=== PATIENT | male | born 1950 | race Hispanic/Latino ===

== ENCOUNTER 2021-07-06 00:42 | Inpatient (IN) | payer SELFPAY ==
[~2021-07-06] VITALS: Ht 167.6 cm; Wt 68.0 kg
[~2021-07-06 00:42] MED LIST: COMBIVENT INH14.7 GM INH; SPIRIVA18 MCG INH; SYMBICORT 16010.2 GM INH
[2021-07-06 01:01] LABS: BASOPHILS % 0.3 % (0.0-1.0); EOSINOPHILS # (AUTO) 0.1 (0.0-0.4); EOSINOPHILS % 1.7 % (0.0-6.0); HEMATOCRIT 35.8 % (38.2-49.6); HEMOGLOBIN 11.8 g/dL (14.0-18.0); LYMPHOCYTES # (AUTO) 1.4 (1.0-3.2); LYMPHOCYTES % 18.5 % (18.0-39.1); MEAN CORPUSCULAR HEMOGLOBIN 30.1 pg (28-32); MEAN CORPUSCULAR VOLUME 91.3 fL (81-99); MONOCYTES # (AUTO) 0.7 (0.2-0.8); MONOCYTES % 8.4 % (4.4-11.3); NEUTROPHILS # (AUTO) 5.3 (2.1-6.9); NEUTROPHILS % 68.1 % (38.7-80.0); PLATELET COUNT 250 x10e3/uL (140-360); RED BLOOD COUNT 3.92 x10e6/uL (4.3-5.7); RED CELL DISTRIBUTION WIDTH 13.4 % (11.7-14.4)
[2021-07-06 01:23] LABS: ALBUMIN 2.8 g/dL (3.5-5.0); ALBUMIN/GLOBULIN RATIO 0.8 (0.8-2.0); ANION GAP 14.5 mmol/L (8-16); CREATININE, SERUM 0.72 mg/dL (0.72-1.25); POTASSIUM 3.5 mmol/L (3.5-5.1)
[2021-07-06 01:32] LABS: CREATINE KINASE MB 1.4 ng/mL (0-5.0)
[2021-07-06] MEDS ORDERED: KETOROLAC TROMETHAMINE 30 MG/ML VIAL IV STA (01:46)
[2021-07-06] MEDS ORDERED: ULTRAM 50MG50 MG PO (01:50)
[2021-07-06 04:00] LABS: INR 0.99; PROTHROMBIN TIME 13.9 seconds (11.9-14.5)
[2021-07-06] MEDS ORDERED: HEPARIN SOD (PORCINE) 5,000 UNIT/ML VIAL IV ONE (04:00)
[2021-07-06 04:01] LABS: PARTIAL THROMBOPLASTIN TIME 31.2 seconds (23.8-35.5)
[2021-07-06] MEDS ORDERED: ONDANSETRON HCL INJ 2MG/ML 2ML 2 MG/ML VIAL IV PRN (04:30)
[2021-07-06] MEDS ORDERED: SODIUM CHLORIDE FLUSH 10 ML SYR INJ PRN (04:30)
[2021-07-06] MEDS ORDERED: HEPARIN 25,000 UNIT DRIP IV ONE (04:35)
[2021-07-06] MEDS: HEPARIN 25,000 UNIT 1,200 UNIT in DEXTROSE 5% 250ML 250 ML IV SCH (04:41)
[2021-07-06] MEDS ORDERED: IOPAMIDOL 370 MG/ML 200 ML INFUS..BTL INJ ONE (06:09)
[2021-07-06] MEDS ORDERED: SODIUM CHLORIDE 0.9% 50ML 50 ML ONE (06:09)
[2021-07-06 06:47] VITALS: BP 137/84
[2021-07-06 08:00] VITALS: BP 136/77
[2021-07-06 09:14] LABS: CREATINE KINASE MB 1.4 ng/mL (0-5.0)
[2021-07-06 11:55] VITALS: BP 135/79
[2021-07-06 16:00] VITALS: BP 141/73
[2021-07-06] MEDS: TRAMADOL HCL 50 MG TAB PO PRN ×2 (16:14→18:21)
[2021-07-06 17:01] LABS: CREATINE KINASE MB 1.5 ng/mL (0-5.0)
[2021-07-06] MEDS: BUDESONIDE/FORMOTEROL 160/4.5MCG INHALER INH SCH (19:23)
[2021-07-06 20:00] VITALS: BP 129/76
[2021-07-07] VITALS (8 sets, daily range): BP systolic 121–155; BP diastolic 71–93
[2021-07-07] MEDS: TRAMADOL HCL 50 MG TAB PO PRN ×3 (00:25→11:58)
[2021-07-07] MEDS ORDERED: HEPARIN 25,000 UNIT DRIP IV ONE (03:10)
[2021-07-07] MEDS: HEPARIN 25,000 UNIT 1,200 UNIT in DEXTROSE 5% 250ML 250 ML IV SCH (05:01)
[2021-07-07 06:08] LABS: BASOPHILS # (AUTO) 0.1 (0.0-0.1); EOSINOPHILS # (AUTO) 0.1 (0.0-0.4); EOSINOPHILS % 1.1 % (0.0-6.0); HEMATOCRIT 36.8 % (38.2-49.6); HEMOGLOBIN 12.3 g/dL (14.0-18.0); LYMPHOCYTES # (AUTO) 1.4 (1.0-3.2); LYMPHOCYTES % 16.9 % (18.0-39.1); MEAN CORPUSCULAR HEMOGLOBIN 30.6 pg (28-32); MEAN CORPUSCULAR HGB CONC 33.4 g/dL (31-35); MEAN CORPUSCULAR VOLUME 91.5 fL (81-99); MONOCYTES # (AUTO) 0.6 (0.2-0.8); MONOCYTES % 7.6 % (4.4-11.3); NEUTROPHILS # (AUTO) 5.5 (2.1-6.9); NEUTROPHILS % 65.2 % (38.7-80.0); PLATELET COUNT 276 x10e3/uL (140-360); RED BLOOD COUNT 4.02 x10e6/uL (4.3-5.7); RED CELL DISTRIBUTION WIDTH 13.5 % (11.7-14.4)
[2021-07-07] MEDS: TIOTROPIUM 18 MCG INH POWDER INH SCH (06:09)
[2021-07-07] MEDS: BUDESONIDE/FORMOTEROL 160/4.5MCG INHALER INH SCH ×2 (06:09→19:25)
[2021-07-07 07:03] LABS: ALBUMIN 2.7 g/dL (3.5-5.0); ALBUMIN/GLOBULIN RATIO 0.8 (0.8-2.0); ANION GAP 13.6 mmol/L (8-16); CALCIUM 8.3 mg/dL (8.4-10.2); CREATININE, SERUM 0.73 mg/dL (0.72-1.25); POTASSIUM 3.6 mmol/L (3.5-5.1)
[2021-07-07 07:42] LABS: CREATINE KINASE MB 0.9 ng/mL (0-5.0)
[2021-07-07 11:31] LABS: EOSINOPHILS % (MANUAL) 1 % (0-7); LYMPHOCYTES % (MANUAL) 17 % (19-48); MONOCYTES % (MANUAL) 3 % (3.4-9.0); NEUTROPHILS % (MANUAL) 78 % (40-74); PLATELET ESTIMATE ADEQUATE
[2021-07-07 11:32] LABS: PLATELET MORPHOLOGY COMMENT NORMAL; RBC MORPHOLOGY COMMENT NORMAL
[2021-07-07] MEDS: Morphine 4mg Syringe 4 MG/ML INJ IV PRN (15:25)
[2021-07-08] VITALS (8 sets, daily range): BP systolic 119–156; BP diastolic 70–86
[2021-07-08] MEDS: Morphine 4mg Syringe 4 MG/ML INJ IV PRN ×3 (01:40→17:54)
[2021-07-08] MEDS: HEPARIN 25,000 UNIT 1,200 UNIT in DEXTROSE 5% 250ML 250 ML IV SCH (04:00)
[2021-07-08] MEDS: BUDESONIDE/FORMOTEROL 160/4.5MCG INHALER INH SCH ×2 (07:03→18:40)
[2021-07-08] MEDS: TIOTROPIUM 18 MCG INH POWDER INH SCH (07:03)
[2021-07-08 07:10] LABS: CHOL/HDL RATIO 3.7 (3.9-4.7)
[2021-07-08 07:30] LABS: THYROID STIMULATING HORMONE 4.315 uIU/mL (0.350-4.940)
[2021-07-08 13:46] LABS: INR 1.02; PROTHROMBIN TIME 14.2 seconds (11.9-14.5)
[2021-07-08] MEDS: ALBUTEROL/IPRATROPIUM 3 ML NEB NEB PRN ×3 (16:12→22:15)
[2021-07-08] MEDS: WARFARIN SOD 5 MG TAB PO SCH (17:48)
[2021-07-08] MEDS: TRAMADOL HCL 50 MG TAB PO PRN (19:45)
[2021-07-09] VITALS (8 sets, daily range): BP systolic 112–156; BP diastolic 62–74
[2021-07-09] MEDS: HEPARIN 25,000 UNIT 1,200 UNIT in DEXTROSE 5% 250ML 250 ML IV SCH (00:45)
[2021-07-09] MEDS: ALBUTEROL/IPRATROPIUM 3 ML NEB NEB PRN ×6 (03:00→23:10)
[2021-07-09] MEDS: Morphine 4mg Syringe 4 MG/ML INJ IV PRN ×3 (03:50→15:50)
[2021-07-09] MEDS: BUDESONIDE/FORMOTEROL 160/4.5MCG INHALER INH SCH ×2 (07:18→19:05)
[2021-07-09] MEDS: TIOTROPIUM 18 MCG INH POWDER INH SCH (07:18)
[2021-07-09 14:05] LABS: INR 1.03; PROTHROMBIN TIME 14.3 seconds (11.9-14.5)
[2021-07-09] MEDS: WARFARIN SOD 5 MG TAB PO SCH (15:50)
[2021-07-09] MEDS: HYDROCODONE/APAP 10MG-325MG TAB PO PRN (20:05)
[2021-07-10] VITALS (7 sets, daily range): BP systolic 118–137; BP diastolic 67–81
[2021-07-10] MEDS: HYDROCODONE/APAP 10MG-325MG TAB PO PRN ×3 (01:05→17:04)
[2021-07-10] MEDS: HEPARIN 25,000 UNIT 1,200 UNIT in DEXTROSE 5% 250ML 250 ML IV SCH ×3 (03:00→23:12)
[2021-07-10] MEDS: ALBUTEROL/IPRATROPIUM 3 ML NEB NEB PRN ×5 (03:05→23:00)
[2021-07-10 06:08] LABS: INR 1.23; PROTHROMBIN TIME 16.5 seconds (11.9-14.5)
[2021-07-10] MEDS: BUDESONIDE/FORMOTEROL 160/4.5MCG INHALER INH SCH ×2 (07:30→19:00)
[2021-07-10] MEDS: TIOTROPIUM 18 MCG INH POWDER INH SCH (08:00)
[2021-07-10] MEDS ORDERED: WARFARIN SOD 5 MG TAB PO ONE (10:00)
[2021-07-10] MEDS: WARFARIN SOD 5 MG TAB PO SCH (17:03)
[2021-07-10] MEDS: Morphine 4mg Syringe 4 MG/ML INJ IV PRN (23:30)
[2021-07-11] VITALS (9 sets, daily range): BP systolic 116–138; BP diastolic 59–72
[2021-07-11] MEDS: HYDROCODONE/APAP 10MG-325MG TAB PO PRN ×3 (01:00→22:49)
[2021-07-11] MEDS: TIOTROPIUM 18 MCG INH POWDER INH SCH ×2 (06:00→10:24)
[2021-07-11] MEDS: ALBUTEROL/IPRATROPIUM 3 ML NEB NEB PRN ×5 (06:53→23:20)
[2021-07-11] MEDS: BUDESONIDE/FORMOTEROL 160/4.5MCG INHALER INH SCH ×2 (06:53→19:00)
[2021-07-11 08:08] LABS: INR 1.82; PROTHROMBIN TIME 22.5 seconds (11.9-14.5)
[2021-07-11] MEDS: HEPARIN 25,000 UNIT 1,200 UNIT in DEXTROSE 5% 250ML 250 ML IV SCH (09:50)
[2021-07-11] MEDS ORDERED: ONDANSETRON HCL 4 MG ORAL DISINTEGRATING TAB PO PRN (10:45)
[2021-07-11] MEDS ORDERED: HYDROMORPHONE 1MG/1ML INJ IV ONE (12:30)
[2021-07-11] MEDS ORDERED: HYDROMORPHONE 1MG/1ML INJ IV NR (12:30)
[2021-07-11] MEDS: WARFARIN SOD 5 MG TAB PO SCH (17:35)
[2021-07-11] MEDS: Morphine 4mg Syringe 4 MG/ML INJ IV PRN (19:56)
[2021-07-12 00:01] VITALS: BP 132/74
[2021-07-12] MEDS: ALBUTEROL/IPRATROPIUM 3 ML NEB NEB PRN (03:05)
[2021-07-12 04:19] VITALS: BP 118/69
[2021-07-12 07:23] LABS: INR 2.44; PROTHROMBIN TIME 28.4 seconds (11.9-14.5)
[2021-07-12 08:22] VITALS: BP 124/69
[2021-07-12 09:03] VITALS: BP 124/69
[2021-07-12] MEDS: Morphine 4mg Syringe 4 MG/ML INJ IV PRN (09:40)
[2021-07-12] MEDS: BUDESONIDE/FORMOTEROL 160/4.5MCG INHALER INH SCH (10:16)
[2021-07-12] MEDS ORDERED: LIDOCAINE 4% PATCH TP SCH (12:30)
[2021-07-12 12:35] VITALS: BP 128/61
[2021-07-12 15:24] VITALS: BP 135/75
[2021-07-12] MEDS: HYDROCODONE/APAP 10MG-325MG TAB PO PRN (16:23)
[2021-07-12] MEDS: WARFARIN SOD 5 MG TAB PO SCH (16:24)
== END 2021-07-12 17:03 | disposition home or self-care (01) | DRG 180 ==
LOC: ER 01:19 → ERHOLD 04:33 → MED/SURG3 06:33
PROVIDERS: ADMIT Internal Medicine; ATTEND Internal Medicine
DX: C34.12 Malignant neoplasm of upper lobe, left bronchus or lung (principal); I26.94 Multiple subsegmental thrombotic pulmonary emboli without acute cor pulmonale; I31.3 Pericardial effusion (noninflammatory); C78.6 Secondary malignant neoplasm of retroperitoneum and peritoneum; C45.0 Mesothelioma of pleura; J61 Pneumoconiosis due to asbestos and other mineral fibers; J44.9 Chronic obstructive pulmonary disease, unspecified; M25.512 Pain in left shoulder; Z87.891 Personal history of nicotine dependence; D63.8 Anemia in other chronic diseases classified elsewhere; E77.8 Other disorders of glycoprotein metabolism; E88.09 Other disorders of plasma-protein metabolism, not elsewhere classified; E83.51 Hypocalcemia; J98.2 Interstitial emphysema
CPT/HCPCS: 36415; 71045; 71260; 74470; 80053; 80061; 82550; 82553; 84443; 84484; 85025; 85610; 85730; 93005; 93306; 94799; 96361; 96366; 99284; J1170; J1644; J1885; J2270; Q0162; Q9967; U0002